=== PATIENT | female | born 1990 | race Caucasian/White ===

== ENCOUNTER → 2017-02-05 | Outpatient (CLI) | payer BC, OTHER ==
[~2017-02-05] MED LIST: BCPILLS PO; CHOL100010 PO
[2017-02-05 11:19] LABS: BLOOD UREA NITROGEN 15 mg/dl (7-18); BUN/CREATININE RATIO 18.2 (10-20); CALCIUM 8.7 mg/dl (8.5-10.1); CARBON DIOXIDE 28 mmol/L (21-32); CHLORIDE 110 mmol/L (98-107); GLUCOSE 92 mg/dl (70-99); POTASSIUM 3.8 mmol/L (3.5-5.1); SODIUM 144 mmol/L (136-145)
[2017-02-05 11:22] LABS: CHOLESTEROL 169 mg/dl (0-200); CHOLESTEROL/HDL RATIO 2.8; HDL CHOLESTEROL 61 mg/dl; LDL CHOLESTEROL CALCULATED 94 mg/dl; TRIGLYCERIDES 68 mg/dl (0-150); VERY LOW DENSITY LIPOPROT CALC 14 mg/dl
== END | disposition home or self-care (01) ==
LOC: C.LABBC 08:03
PROVIDERS: ATTEND Family Medicine
DX: R17 Unspecified jaundice (principal); E78.5 Hyperlipidemia, unspecified; E55.9 Vitamin D deficiency, unspecified

== ENCOUNTER → 2017-02-19 | Outpatient (CLI) | payer BC, OTHER ==
[~2017-02-19] MED LIST changes: +ACET-749 PO; +CEPH500C2 PO; +FERR324T PO; +ONDA4TAB65 PO; +PRENTAB26 PO
== END | disposition home or self-care (01) ==
LOC: C.LAB1850 10:31
PROVIDERS: ATTEND Obstetrics & Gynecology
DX: Z32.00 Encounter for pregnancy test, result unknown (principal)

== ENCOUNTER → 2017-03-12 | Outpatient (CLI) | payer BC, OTHER ==
[2017-03-12 18:25] LABS: URINE APPEARANCE CLEAR (CLEAR); URINE BILIRUBIN NEG (NEG); URINE COLOR YELLOW; URINE NITRITE NEG (NEG); URINE SPECIFIC GRAVITY 1.034 (1.000-1.030); UROBILINOGEN NEG (NEG)
[2017-03-12 18:30] LABS: MANUAL MICROSCOPIC REQUIRED? NO; REVIEW REQ? NO
== END | disposition home or self-care (01) ==
LOC: C.LABSPEC 17:55
PROVIDERS: ATTEND Obstetrics & Gynecology
DX: O09.01 Supervision of pregnancy with history of infertility, first trimester (principal)

== ENCOUNTER → 2017-03-20 | Outpatient (CLI) | payer BC, OTHER ==
[2017-03-22 15:08] LABS: CHLAMYDIA TRACH RNA*** NOT DETECTED (NOT DETECTED); GC (NEIS GONORRHOEAE)RNA** NOT DETECTED (NOT DETECTED)
== END | disposition home or self-care (01) ==
LOC: C.LABSPEC 17:45
PROVIDERS: ATTEND Obstetrics & Gynecology
DX: O09.01 Supervision of pregnancy with history of infertility, first trimester (principal); Z3A.00 Weeks of gestation of pregnancy not specified

== ENCOUNTER → 2017-04-20 | Outpatient (CLI) | payer BC, OTHER ==
[2017-04-20 11:34] LABS: BASO % 0.3 %; BASO ABS # 0.02 K/uL (0-0.2); COMPLETE YES; EOS % 1.1 %; HEMATOCRIT 35.4 % (37-47); IG% 0.3 %; LYMPH % 21.7 %; LYMPH ABS # 1.65 K/uL (1.2-3.4); MEAN CELL VOLUME 92.9 fL (80-100); MEAN CORPUSCULAR HEMOGLOBIN 33.1 pg (25-34); MEAN CORPUSCULAR HGB CONC 35.6 g/dl (32-36); MEAN PLATELET VOLUME 10.4 fL (7.4-10.4); MONO % 7.5 %; NEUT % 69.1 %; PLATELET COUNT 215 K/uL (130-400); RED BLOOD COUNT 3.81 M/uL (4.2-5.4)
== END | disposition home or self-care (01) ==
LOC: C.LAB1850 09:50
PROVIDERS: ATTEND Obstetrics & Gynecology
DX: O09.01 Supervision of pregnancy with history of infertility, first trimester (principal)

== ENCOUNTER → 2017-05-18 | Outpatient (CLI) | payer BC, OTHER ==
[~2017-05-18] MED LIST changes: -ACET-749 PO; -CEPH500C2 PO; -FERR324T PO; -ONDA4TAB65 PO; -PRENTAB26 PO
[2017-05-18 16:37] LABS: GTGD 50 Grams
[2017-05-23 14:23] LABS: AFP CONCENTRATION 67.8 NG/ML; AFP MULTIPLE OF MEDIAN 1.55; AFPTS GESTATIONAL AGE 16.9 WEEKS; AFPTS INSULIN DEP DIABETIC? NO; AFPTS MATERNAL WT 116 LBS; ALPHA-FETOPROTEIN RACE CAUCASIAN=W; HISTORY OF NTD NO; REPEAT SAMPLE? NO
== END | disposition home or self-care (01) ==
LOC: C.LAB1850 14:12
PROVIDERS: ATTEND Obstetrics & Gynecology
DX: O09.03 Supervision of pregnancy with history of infertility, third trimester (principal)

== ENCOUNTER → 2017-08-02 | Outpatient (CLI) | payer BC, OTHER ==
[2017-08-02 14:43] LABS: HEMATOCRIT 32.2 % (37-47)
[2017-08-02 14:45] LABS: URINE APPEARANCE CLEAR (CLEAR); URINE BILIRUBIN NEG (NEG); URINE COLOR YELLOW; URINE EPITHELIAL CELL AUTO >30 /lpf (0-5); URINE NITRITE NEG (NEG); URINE SPECIFIC GRAVITY 1.014 (1.000-1.030); UROBILINOGEN NEG (NEG)
[2017-08-02 14:49] LABS: MANUAL MICROSCOPIC REQUIRED? NO; REVIEW REQ? YES
[2017-08-02 15:25] LABS: GTGD 50 Grams
== END | disposition home or self-care (01) ==
LOC: C.LAB1850 12:21
PROVIDERS: ATTEND Obstetrics & Gynecology
DX: O09.02 Supervision of pregnancy with history of infertility, second trimester (principal); E55.9 Vitamin D deficiency, unspecified; Z86.39 Personal history of other endocrine, nutritional and metabolic disease; M25.561 Pain in right knee; M25.562 Pain in left knee

== ENCOUNTER 2017-10-01 15:41 | Outpatient (CLI) | payer BC, OTHER ==
[~2017-10-01] VITALS: Ht 154.9 cm; Wt 65.4 kg
[~2017-10-01 15:41] MED LIST changes: -ACET-749 PO; -CEPH500C2 PO; -FERR324T PO; -ONDA4TAB65 PO; -PRENTAB26 PO
[2017-10-01 16:35] VITALS: Ht 154.9 cm; Wt 65.4 kg
[2017-10-01] MEDS ORDERED: PRENTAB26 PO ×2 (16:39)
[2017-10-01] MEDS ORDERED: FERR324T PO ×2 (16:39)
[2017-10-01 17:00] LABS: BASO % 0.2 %; BASO ABS # 0.03 K/uL (0-0.2); EOS % 0.5 %; HEMATOCRIT 33.9 % (37-47); IG% 0.3 %; LYMPH % 12.4 %; LYMPH ABS # 1.68 K/uL (1.2-3.4); MEAN CELL VOLUME 96.6 fL (80-100); MEAN CORPUSCULAR HEMOGLOBIN 32.2 pg (25-34); MONO % 9.7 %; NEUT % 76.9 %; PLATELET COUNT 198 K/uL (130-400); RED BLOOD COUNT 3.51 M/uL (4.2-5.4)
[2017-10-01 17:06] LABS: COMPLETE YES; MEAN CORPUSCULAR HGB CONC 33.3 g/dl (32-36)
[2017-10-01 17:26] LABS: BUN/CREATININE RATIO 12.4 (10-20); CALCIUM 8.8 mg/dl (8.5-10.1); CREATININE 0.68 mg/dl (0.60-1.20); POTASSIUM 3.8 mmol/L (3.5-5.1)
[2017-10-01 17:29] LABS: MANUAL MICROSCOPIC REQUIRED? YES; URINE APPEARANCE CLEAR (CLEAR); URINE BILIRUBIN NEG (NEG); URINE COLOR YELLOW; URINE NITRITE NEG (NEG); URINE PH 6.5 (4.5-7.5); URINE SPECIFIC GRAVITY 1.025 (1.000-1.030); UROBILINOGEN NEG (NEG)
[2017-10-01 17:32] LABS: REVIEW REQ? NO
[2017-10-01 17:40] LABS: URINE BACTERIA 1+ (NEG)
[2017-10-01] MEDS ORDERED: CEPH500C2 PO ×2 (18:34)
[2017-10-01] MEDS ORDERED: ONDA4TAB65 PO ×2 (18:34)
[2017-10-01] MEDS ORDERED: ACET-749 PO ×2 (18:34)
--- NOTE | 2017-10-01 18:36 | Discharge Instructions ---
Discharge Instructions Date of Service Oct 01, 2017. Admission Reason for Admission: Evaluate Flank Pain Discharge Discharge Diagnosis / Problem: kidney stone Discharge Goals Goal(s): Continuing OB care Activity Recommendations Activity Limitations: per Instructions/Follow-up section . Instructions / Follow-Up Instructions / Follow-Up SPECIAL CARE INSTRUCTIONS: Call Doctor if: * Regular contractions every 5 minutes. * Bleeding * Water breaks or is leaking * Decreased movement * Fever >100.4 degrees F * Pain not relieved by routine measures or pain medication ordered. FOLLOW UP VISIT: Call [facility] Office to schedule a visit next week. Current Hospital Diet Patient's current hospital diet: Discharge Diet Recommended Diet: Regular OB Diet Pending Studies Studies pending at discharge: yes List of pending studies: urine culture Medical Emergencies . Who to Call and When: Medical Emergencies: If at any time you feel your situation is an emergency, please call 911 immediately. . Non-Emergent Contact Non-Emergency issues call your: Primary Care Provider, Escalator Mechanic . . "Provider Documentation" section prepared by Nichole Briggs. . VTE Core Measure Inpt VTE Proph given/why not?: Treatment not indicated [place] Drug Monitoring Program Search Results: patient reviewed within database
== END 2017-10-01 18:40 | disposition home or self-care (01) ==
LOC: C.LD 15:41 → C.OPB 15:41
PROVIDERS: ATTEND Obstetrics & Gynecology
DX: O26.893 Other specified pregnancy related conditions, third trimester (principal); R10.9 Unspecified abdominal pain; O21.0 Mild hyperemesis gravidarum; O09.03 Supervision of pregnancy with history of infertility, third trimester; Z3A.36 36 weeks gestation of pregnancy

== ENCOUNTER → 2017-10-01 | Outpatient (CLI) | payer BC, OTHER ==
[~2017-10-01] MED LIST changes: +ACET-749 PO; +CEPH500C2 PO; +FERR324T PO; +ONDA4TAB65 PO; +PRENTAB26 PO
== END | disposition home or self-care (01) ==
LOC: C.LABSPEC 17:49
PROVIDERS: ATTEND Obstetrics & Gynecology
DX: O09.03 Supervision of pregnancy with history of infertility, third trimester (principal)

== ENCOUNTER 2017-10-08 16:19 | Outpatient (CLI) | payer BC, OTHER ==
[~2017-10-08] VITALS: Ht 154.9 cm; Wt 66.4 kg
[~2017-10-08 16:19] MED LIST changes: +ACET-749 PO; +CEPH500C2 PO; +FERR324T PO; +ONDA4TAB65 PO; +PRENTAB26 PO
[2017-10-08 17:13] LABS: BASO % 0.1 %; BASO ABS # 0.01 K/uL (0-0.2); COMPLETE YES; HEMATOCRIT 33.6 % (37-47); IG% 0.2 %; LYMPH % 19.4 %; LYMPH ABS # 1.56 K/uL (1.2-3.4); MEAN CORPUSCULAR HEMOGLOBIN 32.9 pg (25-34); MEAN CORPUSCULAR HGB CONC 34.2 g/dl (32-36); MEAN PLATELET VOLUME 10.7 fL (7.4-10.4); MONO % 9.8 %; NEUT % 69.5 %; PLATELET COUNT 208 K/uL (130-400); WHITE BLOOD COUNT 8.04 K/uL (4.8-10.8)
[2017-10-08 17:36] LABS: ALB/GLOB RATIO 0.6 (0.9-2); ALT/SGPT 21 U/L (12-78); AST/SGOT 21 U/L (15-37); BLOOD UREA NITROGEN 11 mg/dl (7-18); BUN/CREATININE RATIO 12.4 (10-20); CALCIUM 8.7 mg/dl (8.5-10.1); CARBON DIOXIDE 22 mmol/L (21-32); CHLORIDE 104 mmol/L (98-107); CREATININE 0.93 mg/dl (0.60-1.20); GLUCOSE 105 mg/dl (70-99); POTASSIUM 3.6 mmol/L (3.5-5.1); SODIUM 134 mmol/L (136-145); URIC ACID 5.8 mg/dl (2.6-7.2)
[2017-10-08 17:37] LABS: ALKALINE PHOSPHATASE 131 U/L (45-117)
[2017-10-08 17:48] VITALS: Ht 154.9 cm; Wt 66.4 kg
[2017-10-08 18:21] LABS: URINE APPEARANCE CLEAR (CLEAR); URINE BILIRUBIN NEG (NEG); URINE COLOR YELLOW; URINE EPITHELIAL CELL AUTO >30 /lpf (0-5); URINE NITRITE NEG (NEG); URINE PH 6.5 (4.5-7.5); URINE SPECIFIC GRAVITY 1.014 (1.000-1.030); UROBILINOGEN NEG (NEG); ZZUR CULT IF INDIC CLEAN CATCH YES
[2017-10-08 18:23] LABS: MANUAL MICROSCOPIC REQUIRED? NO; REVIEW REQ? NO
== END 2017-10-08 19:02 | disposition home or self-care (01) ==
LOC: C.LD 16:19 → C.OPB 16:19
PROVIDERS: ATTEND Obstetrics & Gynecology
DX: O12.23 Gestational edema with proteinuria, third trimester (principal); Z3A.37 37 weeks gestation of pregnancy

== ENCOUNTER 2017-10-19 22:30 | Inpatient (IN) | payer BC, OTHER ==
[~2017-10-19] VITALS: Ht 154.9 cm; Wt 67.3 kg
[~2017-10-19 22:30] MED LIST changes: -ACET-749 PO; -BCPILLS PO; -CEPH500C2 PO
[2017-10-19] MEDS ORDERED: LACTATED RINGER'S 1000ML 1,000 ML IV PRN (22:48)
[2017-10-19] MEDS ORDERED: LACTATED RINGER'S 1000ML 1,000 ML IV SCH (22:48)
[2017-10-19] MEDS ORDERED: PENICILLIN G POTASSIUM IV 6 MU in DEXTROSE 5% 250ML 250 ML IV ONE (23:00)
[2017-10-19 23:10] LABS: MEAN CELL VOLUME 95.7 fL (80-100); MEAN CORPUSCULAR HEMOGLOBIN 33.3 pg (25-34); MEAN CORPUSCULAR HGB CONC 34.8 g/dl (32-36); MEAN PLATELET VOLUME 10.5 fL (7.4-10.4); PLATELET COUNT 240 K/uL (130-400); RED BLOOD COUNT 3.45 M/uL (4.2-5.4); WHITE BLOOD COUNT 14.09 K/uL (4.8-10.8)
[2017-10-19 23:27] VITALS: Ht 154.9 cm; Wt 67.3 kg
[2017-10-20] MEDS ORDERED: NURSING VERBAL MED ORDER ONE (02:45)
[2017-10-20] MEDS ORDERED: BUTORPHANOL TARTRATE 1 MG/ML VIAL IV ONE (03:30)
[2017-10-20] MEDS: PENICILLIN G POTASSIUM IV 3 MU in DEXTROSE 5% 100ML 100 ML IV PRN ×2 (03:34→07:29)
[2017-10-20] MEDS ORDERED: LACTATED RINGER'S 1000ML 500 ML IV PRN ×2 (03:54→05:14)
[2017-10-20] MEDS ORDERED: OXYTOCIN 30 UNITS/500ML NSS IV PRN ×2 (04:00→09:45)
[2017-10-20] MEDS ORDERED: BUPIVACAINE 0.25% 30 ML VIAL ONE (04:11)
[2017-10-20] MEDS ORDERED: EpHEDrine SULFATE INJ 50 MG/ML AMP ONE (04:11)
[2017-10-20] MEDS ORDERED: FENTANYL 2MCG/ML ROPIV 1.25MG/ML 100ML BAG EPI ONE (04:11)
[2017-10-20] MEDS ORDERED: FENTANYL CITRATE INJ 50 MCG/1 ML 2 ML VIAL ONE (04:11)
[2017-10-20] MEDS ORDERED: NALOXONE HCL INJ 1 MG in SODIUM CHLORIDE 0.9% 1000ML 1,000 ML IV PRN (05:14)
[2017-10-20] MEDS ORDERED: PROMETHAZINE HCL INJ 6.25 MG in SODIUM CHLORIDE 0.9% 50ML 50 ML IV PRN (05:15)
[2017-10-20] MEDS ORDERED: NALBUPHINE HCL INJ 10 MG/ML AMP IV PRN (05:15)
[2017-10-20] MEDS ORDERED: NALOXONE HCL INJ 0.4 MG/1 ML VIAL/CARP IV PRN (05:15)
[2017-10-20] MEDS ORDERED: DiphenhydrAMINE HCL 50 MG/ML VIAL IV PRN (05:15)
[2017-10-20] MEDS ORDERED: EpHEDrine SULFATE INJ 50 MG/ML AMP IV PRN (05:15)
[2017-10-20] MEDS ORDERED: FENTANYL 2MCG/ML ROPIV 1.25MG/ML 100ML BAG EPI PRN (05:15)
[2017-10-20] MEDS ORDERED: ONDANSETRON INJ 2 MG/ML 2 ML VIAL IV PRN (05:15)
[2017-10-20] MEDS ORDERED: BENZOCAINE 20% AER SPR 82.5 GM CAN EXT PRN (09:45)
[2017-10-20] MEDS ORDERED: OXYCODONE/ACETAMINOPHEN 5-325 TAB PO PRN (09:45)
[2017-10-20] MEDS ORDERED: LANOLIN OINT EXT PRN ×2 (09:45)
[2017-10-20] MEDS ORDERED: SUPERCREAM 0.870 % 15GM JAR EXT PRN (09:45)
[2017-10-20] MEDS ORDERED: ACETAMINOPHEN 325 MG TAB PO PRN (09:45)
--- NOTE | 2017-10-20 10:42 | DELIVERY SUMMARY ---
DATE OF OPERATION: 10/20/2017 DATE OF DELIVERY: 10/20/2017 The patient is a 27-year-old 1, P0 at 40 weeks who presented with ruptured membranes, 1 cm dilated. She received 2 doses of penicillin, Pitocin augmentation of her labor was begun because her cervix had very minimal change from 1 cm to 1-2 cm. She received epidural analgesia which was effective. She progressed rapidly to full dilation and pushed effectively over an intact perineum for delivery of a viable female infant. The nasopharynx was suctioned on the perineum. The rest of the infant delivered easily and was placed on the mother's abdomen for further attention. There was spontaneous crying and the infant was moving all 4 limbs. A first degree vaginal laceration was repaired with 3-0 chromic in the usual fashion. Estimated blood loss was 200 mL. Mother and infant were doing well after the delivery. I attest to the content of the Intraoperative Record and any orders documented therein. Any exception s are noted below.
--- NOTE | 2017-10-20 10:47 | Anesthesia Procedure Note ---
Anesthesia Epidural Removal Nt Date & Time Oct 20, 2017 at 10:47 Vital Signs Pain Intensity: 0.0 Notes Mental Status: alert / awake / arousable, participated in evaluation Nausea / Vomiting: adequately controlled Pain: adequately controlled Airway Patency, RR, SpO2: stable & adequate BP & HR: stable & adequate Hydration State: stable & adequate Neuraxial Anesthesia: was administered, sensory block is resolving Anesthetic Complications: no major complications apparent, pt satisfied with anesthetic care Epidural: removed without complications, with tip intact
[2017-10-20] MEDS: IBUPROFEN 600 MG TAB PO PRN ×3 (13:56→23:51)
[2017-10-20 15:40] VITALS: BP 118/73; PULSE 90; TEMP 36.6
[2017-10-20] MEDS: DOCUSATE SODIUM 100 MG CAP PO SCH (20:11)
[2017-10-20 20:20] VITALS: BP 133/89; PULSE 90; TEMP 36.6
[2017-10-20 23:45] VITALS: BP 130/79; PULSE 87; TEMP 36.9
[2017-10-21 03:00] VITALS: BP 129/88; PULSE 81; TEMP 36.6
[2017-10-21] MEDS: IBUPROFEN 600 MG TAB PO PRN ×4 (04:58→19:49)
[2017-10-21 07:12] LABS: HEMATOCRIT 31.1 % (37-47)
[2017-10-21 07:15] VITALS: BP 120/72; PULSE 64; TEMP 36.7
[2017-10-21] MEDS: PRENATAL VITAMIN TAB PO SCH (08:42)
[2017-10-21] MEDS: DOCUSATE SODIUM 100 MG CAP PO SCH ×2 (08:43→21:00)
--- NOTE | 2017-10-21 09:09 | Progress Note ---
Subjective Oct 21, 2017. Subjective conversation w/ patient, physical exam, lab review Ambulation: ambulating normally Voiding: no voiding problems Diet Tolerance: Regular Diet Lochia: Moderate Feeding Type: Breast Feeding Objective Vital Signs Date Time Temp Pulse Resp B/P (MAP) Pulse Ox O2 Delivery O2 Flow Rate FiO2 10/21/17 07:15 Room Air 10/21/17 07:15 36.7 64 18 120/72 (88) Room Air 10/21/17 03:00 36.6 81 18 129/88 (102) Room Air 10/20/17 23:45 36.9 87 18 130/79 (96) Room Air 10/20/17 23:45 Room Air 10/20/17 20:20 36.6 90 16 133/89 (104) Room Air 10/20/17 15:40 Room Air 10/20/17 15:40 36.6 90 16 118/73 (88) Room Air 10/20/17 12:30 Room Air Physical Exam General Appearance: WELL-APPEARING Respiratory/Chest: lungs clear Abdomen: non tender Fundus: Firm Extremities: no calf tenderness Laboratory Results Last 24 Hours Test 10/21/17 07:03 Hemoglobin 10.5 g/dL Hematocrit 31.1 % Assessment and Plan Post- Day#: 1 Continue Routine Care: Patient doing well ambulating minimal pain no calf tenderness
[2017-10-21 15:45] VITALS: BP 126/77; PULSE 91; TEMP 36.5
[2017-10-21] MEDS ORDERED: BISACODYL 5 MG TABEC PO SCH (20:00)
[2017-10-21 23:40] VITALS: BP 129/75; PULSE 82; TEMP 36.8; O2SAT 98
--- NOTE | 2017-10-22 06:48 | Progress Note ---
Subjective Oct 22, 2017. Subjective conversation w/ patient, physical exam, lab review Ambulation: ambulating normally Voiding: no voiding problems Passing Gas: Yes Diet Tolerance: Regular Diet Lochia: Moderate Feeding Type: Breast Feeding Objective Vital Signs Date Time Temp Pulse Resp B/P (MAP) Pulse Ox O2 Delivery O2 Flow Rate FiO2 10/21/17 23:40 36.8 82 18 129/75 (93) 98 Room Air 10/21/17 23:40 98 Room Air 10/21/17 15:45 36.5 91 18 126/77 (93) Room Air 10/21/17 15:45 Room Air 10/21/17 07:15 Room Air 10/21/17 07:15 36.7 64 18 120/72 (88) Room Air Physical Exam General Appearance: WELL-APPEARING Respiratory/Chest: lungs clear Abdomen: non tender Fundus: Firm Extremities: no calf tenderness Laboratory Results Last 24 Hours Test 10/21/17 07:03 Hemoglobin 10.5 g/dL Hematocrit 31.1 % Assessment and Plan Post- Day#: 2 Continue Routine Care: no calf pain. Minimal bleeding. Home. KAYDEN
--- NOTE | 2017-10-22 06:49 | Discharge Instructions ---
Discharge Instructions Date of Service Oct 22, 2017. Admission Reason for Admission: Check Rupture Discharge Discharge Diagnosis / Problem: Discharge Goals Goal(s): Routine recovery after delivery Activity Recommendations Activity Limitations: per Instructions/Follow-up section . Instructions / Follow-Up Instructions / Follow-Up ACTIVITY RECOMMENDATIONS: * Gradual return to full activity over the next 2-3 weeks. * No lifting - nothing heavier than baby over the next 2-3 weeks. * Do not engage in vigorous exercise, sexual activity or sports until cleared by your physician. * Do not drive or operate any motorized equipment until cleared by your physician. * You may shower/bathe daily. MEDICATIONS: For discomfort or pain, you may use Acetaminophen (Tylenol), Ibuprofen (Advil), or Naproxen (Aleve) following the package directions. For constipation you may use Colace following the package directions. BREAST CARE: If you are not breast feeding: * Wear a supportive bra 24 hours a day for one to two weeks. * Avoid stimulating your breasts and nipples as much as possible during the first few weeks after delivery. * When taking a shower, have the warm water hit your back, not breasts. * When your breasts feel full, apply ice packs. Usually three to four times a day helps ease the discomfort. * Take a mild pain medication (Tylenol / Motrin) when you are uncomfortable. If breast feeding: * Use breast milk to lubricate nipples. Lansinoh cream may be used for sore nipples. You do not need to remove cream prior to breast feeding. If using a different brand of cream, check the label for directions regarding removal of cream prior to nursing. * Wear a supportive bra. * If having problems with breasts or breast feeding, call a relationship consultant or your health care provider. EPISIOTOMY CARE: After delivery, if you have an episiotomy (stitches), the following steps will ease discomfort and aid healing. * For the first 24 hours after delivery, place ice packs next to your episiotomy to help reduce swelling. * After the first 24 hour-period, sitz baths, either portable or in the tub, are suggested. A shower with a shower arm sprayed over the episiotomy may be comforting. * Preeti care should be done after each voiding and bowel movement. Squirt warm water from a plastic bottle over the perineum (region of the body between the anus and urinary opening) and pat dry. * Use Dermoplast to ease discomfort. Shake container. Calmar directly over the episiotomy. Place a Tucks on a clean sanitary pad next to your episiotomy. SPECIAL CARE INSTRUCTIONS: When you are discharged from the hospital, it is important for you to follow the instructions listed below: * During the first week at home, you should be able to care for yourself and your baby. In addition, the usual light household activities are encouraged. * Limit your activities to the way you feel. Do not try to clean the house or move furniture. Be sensible. * If you actively engage in sports and have done so up until the time of your delivery, you may resume these activities as soon as you feel able. This may take up to one month or even longer. Use good judgment. * Continue to take your vitamins for at least six weeks after the of your baby. * Your diet need not be limited unless you were on a special diet before your delivery. Breast-feeding mothers need around 2500 calories per day and at least 64-80 ounces of fluid per day (8 to 10 glasses). * You should eat foods from the four major food groups. Crash diets or fad diets are to be avoided. Eating lean meats, fresh fruits and vegetables, low-fat dairy products, high fiber foods and a regular exercise program, will help you get back to your pre- weight without putting your health at risk. * Constipation is sometimes a problem after delivery. Take a mild laxative as needed. If breast feeding, Milk of Magnesia is acceptable to use. You may use a suppository or Fleets enema if no episiotomy. * A daily shower or tub bath is suggested. Be sure to thoroughly and gently dry the perineum. * A bloody vaginal discharge will usually continue until around four weeks post . A small amount of bleeding may continue for as long as six weeks. Vaginal discharge changes from the bright red bleeding after delivery to pink then brownish and finally yellowish-pink before becoming white and disappearing. * Bleeding may increase with activity. Your first period may come in 4-8 weeks. If you are breast feeding, your period may be delayed even longer. * Zebulon (sex) can begin whenever both you and your partner feel comfortable and do not have any form of genital infection. It is recommended that you wait at least six weeks for internal and external healing to occur. If you have questions, please talk to your health care practitioner. A condom should be used to prevent infection and . * Foreplay, gentle intercourse and lubrication is very important the first several times to prevent pain. A water-based lubricant such as K-Y jelly or Astroglide may be used. * If you have RH negative blood and your baby is RH positive, you will receive RHOGAM by injection prior to discharge. The nurse will give you a card to keep with you that has the date and place that you received RHOGAM after delivery. * During your care, you had a Rubella screen done to check for the presence of rubella antibodies in your blood. If your test was negative, you will receive a Rubella vaccine prior to discharge. This vaccine may cause a fever, soreness at the injection site and flu-like symptoms. If these symptoms persist, notify your health care practitioner. is not advised for one month after a Rubella vaccine. * Verbalizes understanding of car seat law as reviewed with patient nursing. * Car Seat hand-out given and reviewed with patient by nursing. * Shaken baby information reviewed with patient by nursing. Call you doctor if: * Heavy bleeding (saturating several pads an hour) or passing clots the size of your fist. * A fever >101 degrees F (38.3 degrees C) on two occasions four hours apart and /or chills. * Unusual pain in the pelvic or vaginal areas. * "Baby Blues" lasting longer than two weeks. If you have any questions or concerns, call your health care practitioner at . FOLLOW UP VISIT: * Please call the office at to schedule a 6 week examination. It is important you keep this appointment. It is important for you to make arrangements for either yearly or twice yearly check-ups thereafter. Current Hospital Diet Patient's current hospital diet: Regular OB Diet Discharge Diet Recommended Diet: Regular OB Diet Pending Studies Studies pending at discharge: no Medical Emergencies . Who to Call and When: Medical Emergencies: If at any time you feel your situation is an emergency, please call 911 immediately. . Non-Emergent Contact Non-Emergency issues call your: Film Processing Utility Worker . . "Provider Documentation" section prepared by Jeyson Thompson. . VTE Core Measure Inpt VTE Proph given/why not?: Treatment not indicated
[2017-10-22 07:50] VITALS: BP 129/86; PULSE 91; TEMP 36.8; O2SAT 98
[2017-10-22] MEDS: DOCUSATE SODIUM 100 MG CAP PO SCH (09:00)
[2017-10-22] MEDS: PRENATAL VITAMIN TAB PO SCH (09:06)
[2017-10-22] MEDS: IBUPROFEN 600 MG TAB PO PRN (09:08)
[2017-10-22 10:22] VITALS: BP_DIAS 86; PULSE 91; TEMP 36.8
== END 2017-10-22 10:50 | disposition home or self-care (01) | DRG 775 ==
LOC: C.OPB 22:30 → C.LD 22:30 → C.OPB 22:50 → C.LD 10-20 01:41 → C.MS4N 10-20 12:59
PROVIDERS: ADMIT Obstetrics & Gynecology; ATTEND Obstetrics & Gynecology
PROC: 10E0XZZ Delivery of Products of Conception, External Approach (ICD-10-PCS; principal; 2017-10-20)
PROC: 0UQG7ZZ Repair Vagina, Via Natural or Artificial Opening (ICD-10-PCS; principal; 2017-10-20)
DX: O99.824 Streptococcus B carrier state complicating childbirth (principal); Z37.0 Single live birth; O71.4 Obstetric high vaginal laceration alone; Z3A.40 40 weeks gestation of pregnancy

== ENCOUNTER → 2017-11-02 | Outpatient (CLI) | payer BC, OTHER | END | disposition home or self-care (01) | LOC: C.LAB1850 12:58 | PROVIDERS: ATTEND Obstetrics & Gynecology | DX: R30.0 Dysuria (principal) ==

== ENCOUNTER 2021-05-14 07:35 | Inpatient (IN) ==
[2021-05-14] MEDS ORDERED: OXYTOCIN 30 UNITS/500 ML BAG IV PRN ×3 (08:20→19:58)
--- NOTE | 2021-05-14 08:54 | History & Physical Report ---
Date of Service May 14, 2021 Assessment & Plan (1) Hypothyroid in , antepartum: (2) SROM (spontaneous rupture of membranes): 30yo at 38.6 weeks GA. SROM. 1. Fetus: Cat 1 2. Labor: Augment PRN 3. GBS negative 4. Vitals wnl Admission and Anticipated Discharge Date Admission Date: May 14, 2021 History of Present Illness Primary Care Provider: Jovanna White MD 30yo at 38.6 weeks GA. Presents with SROM. Having regular mild/moderate contractions. No VB. Good FM. complicated by hypothyroid. OB Labs: Blood Type A Positive 10/18/20 Antibody Screen NEGATIVE 10/18/20 Hemoglobin 10.6 g/dL (12.0-16.0) L 03/03/21 Hematocrit 30.5 % (37-47) L 03/03/21 Mean Corpuscular Volume 92.0 fL (80-100) 10/18/20 Platelet Count 282 K/uL (130-400) 10/18/20 Rubella IgG Antibody Immune (Immune) 10/18/20 Rapid Plasma Reagin Nonreactive (Nonreactive) 10/18/20 Hepatitis B Surface Antigen Neg (Neg) 10/18/20 HIV (1&2) Ab and P24 Ag, 4th Gener Neg (Neg) 10/18/20 Glucose 1 Hour 50 gm Load 124 mg/dl (70-130) 03/03/21 OB Optional Labs: Chlamydia trachomatis RNA NOT DETECTED (NOT DETECTED) 10/18/20 Neisseria gonorrhoeae RNA NOT DETECTED (NOT DETECTED) 10/18/20 Thyroid Stimulating Hormone (TSH) 0.275 uIu/ml (0.300-4.500) L 03/15/21 Allergies Allergy/AdvReac Type Severity Reaction Status Date / Time No Known Allergies Allergy Verified 05/10/21 08:33 Home Medications Medication Instructions Recorded Confirmed Type cholecalciferol (vitamin D3) See Rx Instructions PO DAILY 04/27/20 05/14/21 History 21-iron fu-folic acid See Rx Instructions PO DAILY 04/27/20 05/14/21 History levothyroxine 88 mcg tablet 88 mcg PO DAILY #30 tab 02/14/21 05/14/21 Rx breast pump #1 ea 03/29/21 05/10/21 Rx Patient History Medical History (Updated 05/14/21 @ 08:53 by Reji Brown MD) Dakota's disease History of anxiety Hypothyroidism (acquired) Internal hemorrhoids Kidney stone Lyme disease Varicella vaccine Surgical History S/P wisdom tooth extraction Family History Grandfather (Paternal) Diabetes Grandfather (Maternal) Hypercholesteremia Mother Anxiety Sister Anxiety Father Hemochromatosis Grandmother (Maternal) Multiple myeloma Denies family history of Ovarian cancer Prostate cancer Myocardial infarction Breast cancer Colorectal cancer Social History (Updated 10/04/20 @ 10:59 by Destiney Nichols) Smoking Status: Never smoker Second Hand Exposure: No; Hx Alcohol Use: No Hx Substance Use: No Preferred Language: Mohawk Communication Ability: Effective Restaurant Hourly Manager Required: No Beliefs That Will Affect Care: None marital status: marital status details: Xavier Murphy (35) [phone] Current Living Situation: Spouse Current Living Situation Comment: lives with spouse, daughter, cats-spouse changing litter current occupational status: employed 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 @ [employer] Other Information That Helps Us Care for You: No Feels Safe at Home: Yes Safety Concerns: Feels Safe At This Time Dental Care, Regularly: Yes Seatbelt Use: always Assistive Devices: None Physical Exam Constitutional: WD/WN, vitals as above Psychiatric: A+Ox3, euthymic affect Genitourinary: OB Exam Abdomen: + vertex Manual OB Exam: + cervical dilation 2 cm, + cervical effacement 80%, + station high and + amniotic fluid clear OB Exam Monitor Tracing: + external FHT monitor used, + external uterine monitor used and + category I; no normal FHT variability, no early decelerations present, no late decelerations present and no variable decelerations Results & Data ([facility]) Vital Signs (Past 12 Hours) Vital Signs Pulse BP 05/14/21 08:15 99 H 125/73 Code Status & VTE Plan VTE Prophylaxis Plan VTE Prophylaxis will be ordered: Yes Coding Level of Care Code None Diagnoses Hypothyroid in , antepartum O99.280; E03.9 SROM (spontaneous rupture of membranes)
[2021-05-14] MEDS ORDERED: LEVOTHYROXINE SODIUM 88 MCG TABLET PO SCH (09:00)
[2021-05-14] MEDS: LACTATED RINGER'S 1,000 ML IV PRN ×4 (09:00→17:42)
[2021-05-14 09:01] LABS: Hematocrit (blood only) 31.4 % (37-47); Hemoglobin 10.6 g/dL (12.0-16.0); Mean Corpuscular Hemoglobin 30.9 pg (25-34); Mean Corpuscular Hgb Conc 33.8 g/dL (32-36); Mean Corpuscular Volume 91.5 fL (80-100); Mean Platelet Volume 10.5 fL (7.4-10.4); Platelet Count 237 K/uL (130-400); RDW Coefficient of Variation 13.5 % (11.5-14.5); RDW Standard Deviation 44.7 fL (36.4-46.3); Red Blood Count 3.43 M/uL (4.2-5.4); White Blood Count 12.39 K/uL (4.8-10.8)
[2021-05-14] MEDS ORDERED: fentaNYL citrate 100 MCG/2 ML VIAL ONE (12:32)
[2021-05-14] MEDS ORDERED: BUPIVACAINE 0.25% 30 ML VIAL ONE (12:32)
[2021-05-14] MEDS ORDERED: SODIUM CHLORIDE 0.9% INJ 10 ML VIAL ONE (12:32)
[2021-05-14] MEDS ORDERED: ePHEDrine sulfate 50 MG/ML AMP ONE (12:32)
[2021-05-14] MEDS ORDERED: fentaNYL 2MCG/ML ROPIVACAINE 1.25MG/ML 100 ML BAG EPI ONE (12:32)
--- NOTE | 2021-05-14 12:54 | Anesthesiology Consultation ---
Date of Service May 14, 2021 Assessment & Plan (1) Encounter for pre-operative examination: Chart Review Chart Review: Acceptable Risk for Surgery and Patient NOT seen in Pre Admission Testing Consults Requested none History Height/Weight Height: 5 ft 1 in Weight: 69.853 kg Allergies Allergy/AdvReac Type Severity Reaction Status Date / Time No Known Allergies Allergy Verified 05/10/21 08:33 Medications Home Medications Medication Instructions Recorded Confirmed Last Taken cholecalciferol (vitamin D3) See Rx Instructions PO DAILY 04/27/20 05/14/21 05/13/21 17:30 21-iron fu-folic acid See Rx Instructions PO DAILY 04/27/20 05/14/21 05/13/21 20:30 levothyroxine 88 mcg tablet 88 mcg PO DAILY #30 tab 02/14/21 05/14/21 05/14/21 06:30 breast pump #1 ea 03/29/21 05/10/21 Unknown Active Medications Generic Name Dose Route Start Last Admin Trade Name Freq PRN Reason Stop Dose Admin Lactated Ringer's 1,000 mls @ 125 mls/hr 05/14/21 08:20 05/14/21 12:19 Lr IV 05/16/21 08:19 999 mls/hr .Q8H PRN Administration L&D Protocol Protocol Levothyroxine Sodium 88 mcg 05/14/21 09:00 05/14/21 10:51 Levothyroxine Sodium 88 Mcg Tablet PO 06/13/21 08:59 Not Given DAILYBB CECI Past Medical History Medical History Dakota's disease History of anxiety Hypothyroidism (acquired) Internal hemorrhoids Kidney stone Lyme disease Varicella vaccine Past Family History Family History Grandfather (Paternal) Diabetes Grandfather (Maternal) Hypercholesteremia Mother Anxiety Sister Anxiety Father Hemochromatosis Grandmother (Maternal) Multiple myeloma Denies family history of Ovarian cancer Prostate cancer Myocardial infarction Breast cancer Colorectal cancer Past Surgical History Surgical History S/P wisdom tooth extraction Social History Smoking Status: Never smoker Hx Alcohol Use: No Hx Substance Use: No Physical Exam Vital Signs Last Vital Signs Temp 36.6 C 05/14/21 11:30 Pulse 83 05/14/21 11:34 Resp 20 05/14/21 11:30 BP 111/76 05/14/21 11:34 Testing Laboratory Results 05/14/21 08:54
[2021-05-14] MEDS ORDERED: NALOXONE HCL 0.4 MG/1 ML VIAL/CARP IV PRN (13:37)
[2021-05-14] MEDS ORDERED: NALOXONE HCL 1 MG in SODIUM CHLORIDE 0.9% 1000ML 1,000 ML IV PRN (13:37)
[2021-05-14] MEDS ORDERED: ONDANSETRON INJ 2 MG/ML 2 ML VIAL IV PRN (13:37)
[2021-05-14] MEDS ORDERED: ePHEDrine sulfate 50 MG/ML AMP IV PRN (13:37)
[2021-05-14] MEDS ORDERED: fentaNYL 2MCG/ML ROPIVACAINE 1.25MG/ML 100 ML BAG EPI PRN (13:37)
[2021-05-14] MEDS ORDERED: diphenhydrAMINE 50 MG/ML VIAL IV PRN (13:37)
[2021-05-14] MEDS ORDERED: HYDROCORTISONE ACETATE 25 MG SUPP PR PRN (19:58)
[2021-05-14] MEDS ORDERED: BENZOCAINE 20% AER SPR 82.5 GM CAN EXT PRN (19:58)
[2021-05-14] MEDS ORDERED: SUPERCREAM 0.870% 15 GM JAR EXT PRN (19:58)
[2021-05-14] MEDS ORDERED: DIPHTHERIA/TETANUS/PERTUSSIS 0.5 ML SYR/VIAL IM ONE (19:58)
--- NOTE | 2021-05-14 20:52 | Delivery Summary ---
DATE OF SERVICE: 05/14/2021 PROCEDURE: Normal spontaneous vaginal delivery. SURGEON: Reji Brown MD. PREOPERATIVE DIAGNOSES: 1. Single intrauterine at 38 weeks 6 days gestational age. 2. Spontaneous rupture of membranes. 3. Hypothyroidism. POSTOPERATIVE DIAGNOSES: 1. Single intrauterine at 38 weeks 6 days gestational age. 2. Spontaneous rupture of membranes. 3. Hypothyroidism. 4. Status post delivery. ESTIMATED BLOOD LOSS: 200 mL. DRAINS: None. FLUIDS: Continuous lactated Ringer. URINE OUTPUT: Not measured. COMPLICATIONS: None. FINDINGS: Viable male with weight pending and Apgars of 7 and 9 at one and five minutes respe ctively. INDICATIONS: The patient was admitted for spontaneous rupture of membranes at 2 cm dilation. The pa tient was monitored for spontaneous onset of labor and the patient only progressed slowly with irregu lar, but painful contractions. She was ultimately started on oxytocin, received an epidural for anes thesia. She then progressed in labor to complete-complete, +2 station, after which she felt a strong urge to push and pushed for approximately 20 minutes to achieve delivery. DESCRIPTION OF PROCEDURE: The patient progressed to 10 cm dilated, 100% effaced, positive 2 station , pushed over intact perineum with epidural anesthesia and delivered a viable male infant with weight and Apgars as noted above. Head of the delivered in YON position, restituted to left transv erse. Nuchal cord x1 was noted, which was easily reduced and body and shoulders quickly followed. N eonate was noted to be vigorous upon right after delivery. Approximately 45-second delayed cord clamp ing was performed, after which the cord was double clamped and cut. was then taken to the [facility] nursery staff for further evaluation. Infant still noted to be vigorous. Cord blood was obtai anirudh. Attention was then turned to delivery of placenta, which was delivered intact, 3-vessel cord, g entle cord traction. On inspection of the perineum, vagina, cervix, there was noted to be no lacerat ions. The patient was straight cathed for 200 mL. Sponge and instrument counts were correct at the c ompletion of the case. Job ID: [id number]
[2021-05-14] MEDS: DOCUSATE SODIUM 100 MG CAP PO SCH (21:32)
--- NOTE | 2021-05-15 02:04 | Anesthesiology Progress Note ---
Date of Service May 15, 2021 Anesthesia Post Procedure Vital Signs Vital Signs: Temp Pulse Pulse Resp BP BP Pulse Ox 05/15/21 00:00 36.8 C 105 H 18 118/78 05/14/21 22:00 18 05/14/21 21:57 110 H 110/59 L 05/14/21 21:46 113 H 125/64 05/14/21 21:31 87 115/68 05/14/21 21:30 18 05/14/21 21:16 92 H 113/70 05/14/21 21:01 93 H 109/68 05/14/21 21:00 18 05/14/21 20:46 100 H 107/61 05/14/21 20:45 18 05/14/21 20:33 91 H 119/70 05/14/21 20:30 18 05/14/21 20:16 105 H 125/69 05/14/21 20:15 18 05/14/21 20:02 100 H 119/63 05/14/21 20:00 18 05/14/21 19:54 96 H 100 05/14/21 19:52 123 H 89 L 05/14/21 19:49 123 H 100 05/14/21 19:44 111 H 100 05/14/21 19:42 108 H 131/83 05/14/21 19:39 111 H 100 05/14/21 19:34 95 H 100 05/14/21 19:30 18 05/14/21 19:29 98 H 132/83 100 05/14/21 19:24 107 H 100 05/14/21 19:19 95 H 100 05/14/21 19:14 115 H 100 05/14/21 19:13 94 H 124/71 05/14/21 19:10 36.7 C 18 05/14/21 19:09 93 H 100 05/14/21 19:04 91 H 100 05/14/21 18:59 102 H 100 05/14/21 18:57 100 H 118/69 05/14/21 18:54 108 H 100 05/14/21 18:49 102 H 100 05/14/21 18:44 87 100 05/14/21 18:42 100 H 117/70 05/14/21 18:39 93 H 100 05/14/21 18:34 89 100 05/14/21 18:29 90 119/71 100 05/14/21 18:24 111 H 100 05/14/21 18:19 96 H 100 05/14/21 18:14 100 H 100 05/14/21 18:12 90 120/69 05/14/21 18:09 93 H 100 05/14/21 18:04 89 100 05/14/21 17:59 95 H 100 05/14/21 17:58 86 120/70 05/14/21 17:54 93 H 100 05/14/21 17:49 83 100 05/14/21 17:44 110 H 100 05/14/21 17:43 94 H 119/76 05/14/21 17:39 90 99 05/14/21 17:34 85 100 05/14/21 17:29 96 H 20 100 05/14/21 17:28 86 118/76 05/14/21 17:24 84 100 05/14/21 17:19 90 100 05/14/21 17:14 83 100 05/14/21 17:12 88 114/62 05/14/21 17:09 88 100 05/14/21 17:07 92 H 94 05/14/21 17:04 97 H 100 05/14/21 16:59 80 18 100 05/14/21 16:58 99 H 119/63 05/14/21 16:54 84 99 05/14/21 16:49 84 100 05/14/21 16:44 95 H 100 05/14/21 16:43 89 114/67 05/14/21 16:39 101 H 100 05/14/21 16:34 36.9 C 83 20 100 05/14/21 16:29 110 H 100 05/14/21 16:28 102 H 122/55 L 05/14/21 16:24 70 100 05/14/21 16:19 81 100 05/14/21 16:14 76 100 05/14/21 16:12 75 93/51 L 05/14/21 16:09 82 100 05/14/21 16:04 80 100 05/14/21 15:59 82 20 95/50 L 100 05/14/21 15:54 91 H 100 05/14/21 15:49 86 100 05/14/21 15:44 80 103/57 L 100 05/14/21 15:39 75 100 05/14/21 15:34 76 100 05/14/21 15:29 84 20 100 05/14/21 15:27 36.8 C 75 20 95/55 L 05/14/21 15:24 90 100 05/14/21 15:19 87 100 05/14/21 15:14 90 96/59 L 100 05/14/21 15:09 85 100 05/14/21 15:04 84 100 05/14/21 14:59 80 18 100 05/14/21 14:57 76 92/51 L 05/14/21 14:54 78 100 05/14/21 14:49 82 100 05/14/21 14:44 76 96/51 L 100 05/14/21 14:39 74 100 05/14/21 14:34 79 100 05/14/21 14:29 76 90/53 L 100 05/14/21 14:24 81 100 05/14/21 14:19 86 100 05/14/21 14:14 85 100 05/14/21 14:09 82 100 05/14/21 14:04 90 100 05/14/21 13:59 96 H 20 109/54 L 100 05/14/21 13:54 90 104/56 L 100 05/14/21 13:49 92 H 98/55 L 100 05/14/21 13:47 96 H 100/45 L 05/14/21 13:45 88 102/57 L 05/14/21 13:44 93 H 100 05/14/21 13:43 96 H 102/60 05/14/21 13:40 83 94/53 L 05/14/21 13:39 87 100 05/14/21 13:38 83 20 95/53 L 05/14/21 13:36 86 93/54 L 05/14/21 13:35 97 H 89/54 L 05/14/21 13:34 98 H 100 05/14/21 13:32 105 H 108/59 L 05/14/21 13:30 93 H 103/58 L 05/14/21 13:29 85 100 05/14/21 13:28 89 105/57 L 05/14/21 13:26 88 105/56 L 05/14/21 13:24 102 H 20 110/64 100 05/14/21 13:22 107 H 106/65 05/14/21 13:20 93 H 113/69 05/14/21 13:19 93 H 100 05/14/21 13:14 97 H 100 05/14/21 13:09 101 H 100 05/14/21 13:04 90 100 05/14/21 11:34 83 111/76 05/14/21 11:30 36.6 C 20 05/14/21 10:32 87 113/70 05/14/21 10:15 87 117/70 05/14/21 10:00 82 117/71 05/14/21 09:46 83 112/69 05/14/21 09:31 89 85/53 L 05/14/21 09:12 194/137 H 05/14/21 08:30 36.7 C 20 05/14/21 08:15 99 H 125/73 Pain Intensity Bilateral Abdomen: Pain Intensity: 3 Transfer of Care Handoff Completed per policy Notes Mental Status: alert / awake / arousable and participated in evaluation Patient Amnestic to Procedure: Yes Nausea / Vomiting: adequately controlled Pain: adequately controlled Airway Patency, RR, SpO2: stable & adequate BP & HR: stable & adequate Hydration State: stable & adequate Anesthetic Complications: no major complications apparent and Pt Satisfied with anesthetic care
[2021-05-15] MEDS: IBUPROFEN 600 MG TAB PO PRN ×4 (03:47→19:37)
[2021-05-15] MEDS: ACETAMINOPHEN 325 MG TAB PO PRN ×2 (06:51→15:51)
[2021-05-15] MEDS: LEVOTHYROXINE SODIUM 75 MCG TABLET PO SCH (06:51)
[2021-05-15] MEDS: FERROUS SULFATE 325 MG TAB PO SCH (08:31)
[2021-05-15] MEDS: PRENATAL VITAMIN 1 TAB PO SCH (08:31)
[2021-05-15] MEDS: DOCUSATE SODIUM 100 MG CAP PO SCH ×2 (08:33→19:37)
--- NOTE | 2021-05-15 09:09 | Obstetrical Progress Note ---
Date of Service May 15, 2021 Assessment & Plan (1) Encounter for care and examination after delivery: Day 1 following . Doing well. Routine care. Stable for discharge if preferred by patient Subjective Ambulation: ambulating normally Voiding: no voiding problems Diet Tolerance:: regular diet Lochia:: Moderate Feeding Type:: breast feeding Physical Exam Constitutional WD/WN, vitals as above Respiratory normal respiratory effort; no respiratory distress and no labored breathing Gastrointestinal (Abdomen) Inspection/Auscultation: abdomen normal to inspection; abdomen not distended Percussion/Palpation: abdomen soft; abdomen nontender, no guarding and abdomen not rigid Genitourinary OB Exam Abdomen: + fundal height Fundus: + firm and + relation to umbilicus (Below); not tender and not boggy Results & Data ([facility]) Vital Signs (Past 12 Hours) Vital Signs Temp Pulse Pulse Resp BP BP 05/15/21 04:00 36.7 C 80 18 100/70 05/15/21 00:00 36.8 C 105 H 18 118/78 05/14/21 22:00 18 05/14/21 21:57 110 H 110/59 L 05/14/21 21:46 113 H 125/64 05/14/21 21:31 87 115/68 05/14/21 21:30 18 05/14/21 21:16 92 H 113/70
[2021-05-15] MEDS ORDERED: bisacodyL 5 MG TABEC PO SCH (20:00)
[2021-05-16] MEDS: IBUPROFEN 600 MG TAB PO PRN ×2 (02:05→06:32)
[2021-05-16] MEDS: LEVOTHYROXINE SODIUM 75 MCG TABLET PO SCH (06:33)
--- NOTE | 2021-05-16 07:30 | Obstetrical Progress Note ---
Date of Service May 16, 2021 Assessment & Plan (1) Encounter for care and examination after delivery: 30yo day 2 s/p . Doing well. Stable for discharge Subjective Ambulation: ambulating normally Voiding: no voiding problems Passing Gas:: Yes Diet Tolerance:: regular diet Lochia:: Moderate Feeding Type:: breast feeding Physical Exam Constitutional WD/WN, vitals as above Respiratory normal respiratory effort; no respiratory distress and no labored breathing Gastrointestinal (Abdomen) Inspection/Auscultation: abdomen normal to inspection; abdomen not distended Percussion/Palpation: abdomen soft; abdomen nontender, no guarding and abdomen not rigid Genitourinary OB Exam Abdomen: + fundal height Fundus: + firm and + relation to umbilicus (Below); not tender and not boggy Results & Data ([facility]) Vital Signs (Past 12 Hours) Vital Signs Temp Pulse Resp BP 05/16/21 00:00 36.9 C 86 18 98/63 L
[2021-05-16] MEDS: FERROUS SULFATE 325 MG TAB PO SCH (07:51)
[2021-05-16] MEDS: PRENATAL VITAMIN 1 TAB PO SCH (07:51)
[2021-05-16] MEDS: DOCUSATE SODIUM 100 MG CAP PO SCH (07:51)
[2021-05-19] MEDS ORDERED: bisacodyL 10 MG SUPP PR PRN (05:00)
== END 2021-05-16 10:25 | disposition home or self-care (01) | DRG 807 ==
LOC: OPB 07:35 → 4S1 07:38 → 4S2 23:00